=== PATIENT | female | born 1980 | race Caucasian/White ===

== ENCOUNTER 2016-12-27 15:43 | Emergency (ER) | payer SELFPAY ==
[~2016-12-27] VITALS: Ht 157.5 cm; Wt 69.0 kg
[2016-12-27 20:31] VITALS: BP 137/76
== END 2016-12-27 22:00 | disposition home or self-care (01) ==
LOC: ER 21:08
DX: Z04.8 Encounter for examination and observation for other specified reasons (principal)
CPT/HCPCS: 71020; 81025; 99284